=== PATIENT | female | born 1945 | race Caucasian/White ===

== ENCOUNTER 2023-03-27 17:38 | Inpatient (IN) | payer MEDICARE ==
[2023-03-27] MEDS ORDERED: Sodium Chloride 0.9% 10 ML Syringe FLUSH PRN (18:31)
[2023-03-27] MEDS ORDERED: Lactated Ringers 1,000 ML IV SCH (18:45)
[2023-03-27 18:49] LABS: BASOPHILS ABSOLUTE AUTO 0.03 K/uL (0.00-0.10); BASOPHILS PERCENT AUTO 0.3 % (0.1-1.3); EOSINOPHILS ABSOLUTE AUTO 0.06 K/uL (0.00-0.40); EOSINOPHILS PERCENT AUTO 0.6 % (0.0-5.4); HEMATOCRIT 42.8 % (34.3-46.0); HEMOGLOBIN 14.9 g/dL (11.2-15.5); IMMATURE GRAN PERCENT AUTO 0.2 % (0.0-0.7); LYMPHOCYTES ABSOLUTE AUTO 1.85 K/uL (0.8-3.3); LYMPHOCYTES PERCENT AUTO 18.6 % (11.4-47.7); MEAN CORPUSCULAR HEMOGLOBIN 30.3 pg (31.6-35.5); MEAN CORPUSCULAR HGB CONC 34.8 g/dL (31.6-35.5); MEAN CORPUSCULAR VOLUME 87.2 fL (81.4-99.0); MONOCYTES ABSOLUTE AUTO 0.62 K/uL (0.20-0.90); MONOCYTES PERCENT AUTO 6.2 % (3.3-12.6); NEUTROPHILS ABSOLUTE AUTO 7.39 K/uL (1.0-7.6); NEUTROPHILS PERCENT AUTO 74.1 % (40.0-78.1); PLATELET COUNT,PLT 261 K/uL (130-375); RED BLOOD CELL COUNT 4.91 M/uL (3.77-5.24)
[2023-03-27 18:52] LABS: IMMATURE GRAN ABSOLUTE AUTO 0.02 K/uL (0.00-0.23)
[2023-03-27] MEDS ORDERED: Meropenem 1 GM in Sodium Chloride 0.9% 100 ML IV ONE (19:07)
[2023-03-27 19:15] LABS: A/G RATIO 0.9 (1.2-2.2); ALANINE AMINOTRANSFERASE,ALT 8 U/L (12-78); ALBUMIN 3.2 g/dL (3.4-5.0); ALKALINE PHOSPHATASE 89 U/L (46-116); ASPARTATE AMNIOTRANSFERASE,AST 14 U/L (15-37); BILIRUBIN TOTAL 0.4 mg/dL (0.2-1.0); BLOOD UREA NITROGEN,BUN 23 mg/dL (7-18); CALCIUM 8.9 mg/dL (8.5-10.1); CARBON DIOXIDE,CO2 23 mmol/L (21-32); CHLORIDE,CL 101 mmol/L (100-108); CREATININE 0.7 mg/dL (0.6-1.0); EST CRCL DRUG DOSING (CG) 54.46 mL/min; ESTIMATED GFR 89 mL/min (>60); GLUCOSE RANDOM 130 mg/dL (74-106); POTASSIUM,K 3.5 mmol/L (3.6-5.2); PROTEIN TOTAL,TP 6.7 g/dL (6.4-8.2); SODIUM,NA 136 mmol/L (140-148); TROPONIN I HIGH SENSITIVITY 14.6 pg/mL (<=60.3)
[2023-03-27 19:16] LABS: ANION GAP 15.5 mmol/L (5.0-14.0)
[2023-03-27] MEDS ORDERED: 50% Dextrose in Water 50 ML Syringe IVPUSH PRN (22:21)
[2023-03-27] MEDS ORDERED: oxyCODONE 5 MG Tab PO PRN (22:21)
[2023-03-27] MEDS ORDERED: Albuterol 0.083% 2.5 MG/3 ML Neb Soln NEB PRN (22:21)
[2023-03-27] MEDS ORDERED: Bisacodyl 5 MG Tab PO PRN (22:21)
[2023-03-27] MEDS ORDERED: Insulin Glargine,Human Rec. Analog 100 Units/ML 3 ML Pen SUBCUT SCH (22:21)
[2023-03-27] MEDS ORDERED: Potassium Chloride 10 MEQ in Premix Bag 1 BAG IV ONE (22:21)
[2023-03-27] MEDS ORDERED: Acetaminophen 325 MG Tab PO PRN (22:21)
[2023-03-27] MEDS ORDERED: Glucagon,Human Recombinant 1 MG Vial IM PRN (22:21)
[2023-03-27] MEDS ORDERED: Docusate Sodium 100 MG Cap PO PRN (22:21)
[2023-03-27] MEDS ORDERED: Pantoprazole 40 MG Vial IV SCH (22:21)
[2023-03-27] MEDS: Sodium Chloride 0.9% 1,000 ML IV SCH (23:43)
[2023-03-28 05:43] LABS: BASOPHILS ABSOLUTE AUTO 0.03 K/uL (0.00-0.10); BASOPHILS PERCENT AUTO 0.4 % (0.1-1.3); EOSINOPHILS ABSOLUTE AUTO 0.07 K/uL (0.00-0.40); EOSINOPHILS PERCENT AUTO 0.9 % (0.0-5.4); HEMATOCRIT 39.1 % (34.3-46.0); HEMOGLOBIN 13.3 g/dL (11.2-15.5); IMMATURE GRAN ABSOLUTE AUTO 0.03 K/uL (0.00-0.23); IMMATURE GRAN PERCENT AUTO 0.4 % (0.0-0.7); LYMPHOCYTES PERCENT AUTO 24.4 % (11.4-47.7); MEAN CORPUSCULAR HEMOGLOBIN 30.2 pg (31.6-35.5); MEAN CORPUSCULAR VOLUME 88.9 fL (81.4-99.0); MONOCYTES ABSOLUTE AUTO 0.59 K/uL (0.20-0.90); MONOCYTES PERCENT AUTO 7.6 % (3.3-12.6); NEUTROPHILS ABSOLUTE AUTO 5.18 K/uL (1.0-7.6); NEUTROPHILS PERCENT AUTO 66.3 % (40.0-78.1); PLATELET COUNT,PLT 215 K/uL (130-375); WHITE BLOOD CELL COUNT,WBC 7.8 K/uL (3.2-11.0)
[2023-03-28 05:58] LABS: CALCIUM 8.2 mg/dL (8.5-10.1); CREATININE 0.6 mg/dL (0.6-1.0); EST CRCL DRUG DOSING (CG) 66.32 mL/min; POTASSIUM,K 3.3 mmol/L (3.6-5.2)
[2023-03-28 06:04] LABS: ANION GAP 13.3 mmol/L (5.0-14.0)
[2023-03-28] MEDS: Sodium Chloride 0.9% 1,000 ML IV SCH (06:12)
[2023-03-28] MEDS: Insulin Lispro 100 Unit/ML 3 ML KwikPen SUBCUT SCH ×4 (07:51→20:54)
[2023-03-28] MEDS: Meropenem 1 GM in Sodium Chloride 0.9% 100 ML IV SCH ×2 (08:28→19:37)
[2023-03-28] MEDS: Clopidogrel 75 MG Tab PO SCH (08:39)
[2023-03-28] MEDS: Empagliflozin 10 MG Tab PO SCH (08:39)
[2023-03-28] MEDS: Venlafaxine 75 MG Cap.ER PO SCH (08:39)
[2023-03-28] MEDS: Triamcinolone Acetonide 0.1% Crm 15 GM Tube TOP SCH ×2 (08:40→20:45)
[2023-03-28] MEDS: Potassium Chloride 20 MEQ Tab.ER PO ONE ×2 (11:30→11:39)
[2023-03-28] MEDS: Potassium Chloride 10 MEQ in Premix Bag 1 BAG IV SCH ×4 (13:45→17:02)
[2023-03-28] MEDS: Venlafaxine 37.5 MG Cap.ER PO SCH (20:44)
[2023-03-28] MEDS: QUEtiapine 25 MG Tab PO SCH (20:45)
[2023-03-29 04:57] LABS: CALCIUM 8.2 mg/dL (8.5-10.1); CREATININE 0.7 mg/dL (0.6-1.0); EST CRCL DRUG DOSING (CG) 56.84 mL/min; POTASSIUM,K 3.5 mmol/L (3.6-5.2)
[2023-03-29 05:47] LABS: ANION GAP 12.5 mmol/L (5.0-14.0)
[2023-03-29] MEDS: Insulin Lispro 100 Unit/ML 3 ML KwikPen SUBCUT SCH ×4 (07:22→21:08)
[2023-03-29] MEDS: Meropenem 1 GM in Sodium Chloride 0.9% 100 ML IV SCH ×2 (08:48→19:59)
[2023-03-29] MEDS: Venlafaxine 75 MG Cap.ER PO SCH (09:29)
[2023-03-29] MEDS: Empagliflozin 10 MG Tab PO SCH (09:30)
[2023-03-29] MEDS: Clopidogrel 75 MG Tab PO SCH (09:31)
[2023-03-29] MEDS: Triamcinolone Acetonide 0.1% Crm 15 GM Tube TOP SCH ×2 (10:03→21:08)
[2023-03-29] MEDS: QUEtiapine 25 MG Tab PO SCH (19:59)
[2023-03-29] MEDS: Venlafaxine 37.5 MG Cap.ER PO SCH (19:59)
[2023-03-30] MEDS: Venlafaxine 37.5 MG Cap.ER PO SCH ×2 (03:17→20:32)
[2023-03-30 04:19] LABS: HEMATOCRIT 39.6 % (34.3-46.0); HEMOGLOBIN 13.9 g/dL (11.2-15.5); MEAN CORPUSCULAR HEMOGLOBIN 30.6 pg (31.6-35.5); MEAN CORPUSCULAR HGB CONC 35.1 g/dL (31.6-35.5); MEAN CORPUSCULAR VOLUME 87.2 fL (81.4-99.0); RED BLOOD CELL COUNT 4.54 M/uL (3.77-5.24); WHITE BLOOD CELL COUNT,WBC 8.2 K/uL (3.2-11.0)
[2023-03-30 04:37] LABS: CALCIUM 8.6 mg/dL (8.5-10.1); CREATININE 0.5 mg/dL (0.6-1.0); EST CRCL DRUG DOSING (CG) 79.58 mL/min; POTASSIUM,K 3.3 mmol/L (3.6-5.2)
[2023-03-30 04:39] LABS: ANION GAP 19.3 mmol/L (5.0-14.0)
[2023-03-30] MEDS: Insulin Lispro 100 Unit/ML 3 ML KwikPen SUBCUT SCH ×4 (09:55→21:56)
[2023-03-30] MEDS: Meropenem 1 GM in Sodium Chloride 0.9% 100 ML IV SCH (09:56)
[2023-03-30] MEDS: Venlafaxine 75 MG Cap.ER PO SCH ×2 (10:05→14:47)
[2023-03-30] MEDS: Clopidogrel 75 MG Tab PO SCH ×2 (10:05→14:48)
[2023-03-30] MEDS: Triamcinolone Acetonide 0.1% Crm 15 GM Tube TOP SCH ×2 (14:47→21:09)
[2023-03-30] MEDS: Doxycycline 100 MG Cap PO SCH (20:32)
[2023-03-30] MEDS: QUEtiapine 25 MG Tab PO SCH (20:32)
[2023-03-30] MEDS ORDERED: Bisacodyl 10 MG Supp RECTAL PRN (20:50)
[2023-03-31] MEDS: Clopidogrel 75 MG Tab PO SCH (08:16)
[2023-03-31] MEDS: Insulin Lispro 100 Unit/ML 3 ML KwikPen SUBCUT SCH ×4 (08:16→21:15)
[2023-03-31] MEDS: Triamcinolone Acetonide 0.1% Crm 15 GM Tube TOP SCH ×2 (08:16→21:34)
[2023-03-31] MEDS: Venlafaxine 75 MG Cap.ER PO SCH (08:17)
[2023-03-31] MEDS: Doxycycline 100 MG Cap PO SCH (08:17)
[2023-03-31] MEDS: Sulfamethoxazole/Trimethoprim 800-160 MG Tab PO SCH (21:33)
[2023-03-31] MEDS: QUEtiapine 25 MG Tab PO SCH (21:33)
[2023-03-31] MEDS: Venlafaxine 37.5 MG Cap.ER PO SCH (21:34)
[2023-04-01] MEDS: Insulin Lispro 100 Unit/ML 3 ML KwikPen SUBCUT SCH (09:02)
[2023-04-01] MEDS: Clopidogrel 75 MG Tab PO SCH (09:15)
[2023-04-01] MEDS: Venlafaxine 75 MG Cap.ER PO SCH (09:15)
[2023-04-01] MEDS: Sulfamethoxazole/Trimethoprim 800-160 MG Tab PO SCH (09:15)
[2023-04-01] MEDS: Triamcinolone Acetonide 0.1% Crm 15 GM Tube TOP SCH (10:20)
== END 2023-04-01 11:23 | disposition hospice, home (50) | DRG 690 ==
LOC: JP.ED 17:38 → JP.MS 21:16 → EEVIPCON 21:16 → JP.MS 03-29 21:08
PROVIDERS: ADMIT Hospitalist; ATTEND Hospitalist
DX: N39.0 Urinary tract infection, site not specified (principal); F03.B0 Unspecified dementia, moderate, without behavioral disturbance, psychotic disturbance, mood disturbance, and anxiety; B96.20 Unspecified Escherichia coli [E. coli] as the cause of diseases classified elsewhere; E11.9 Type 2 diabetes mellitus without complications; E87.6 Hypokalemia; Z79.899 Other long term (current) drug therapy; Z51.5 Encounter for palliative care; E78.00 Pure hypercholesterolemia, unspecified; Z66 Do not resuscitate; G30.9 Alzheimer's disease, unspecified; F02.B0 Dementia in other diseases classified elsewhere, moderate, without behavioral disturbance, psychotic disturbance, mood disturbance, and anxiety; E11.649 Type 2 diabetes mellitus with hypoglycemia without coma; I10 Essential (primary) hypertension; I25.10 Atherosclerotic heart disease of native coronary artery without angina pectoris; Z96.641 Presence of right artificial hip joint; Z86.73 Personal history of transient ischemic attack (TIA), and cerebral infarction without residual deficits; Z88.0 Allergy status to penicillin; Z98.42 Cataract extraction status, left eye; Z98.41 Cataract extraction status, right eye; Z87.01 Personal history of pneumonia (recurrent); Z90.89 Acquired absence of other organs; Z90.710 Acquired absence of both cervix and uterus; Z85.05 Personal history of malignant neoplasm of liver; Z85.07 Personal history of malignant neoplasm of pancreas; Z11.52 Encounter for screening for COVID-19
CPT/HCPCS: 36415; 80053; 83605; 83690; 84484; 85025; J2185; J3490 ×2; J7120; U0002; 80048; 82947; 85027; 97162-GP; 97530-GP; A9270-GY; C9113; J1815; J1815-GY; J3480; J7030